=== PATIENT | male | born 1965 | race Caucasian/White ===

== ENCOUNTER 2018-12-06 09:44 | Emergency (ER) | payer OTHER ==
[~2018-12-06] VITALS: Ht 180.3 cm; Wt 68.9 kg
== END 2018-12-06 15:17 | disposition designated cancer center or children's hospital (05) ==
LOC: ER 09:44
DX: S61.221A Laceration with foreign body of left index finger without damage to nail, initial encounter (principal); S62.611A Displaced fracture of proximal phalanx of left index finger, initial encounter for closed fracture; W45.8XXA Other foreign body or object entering through skin, initial encounter; Y93.89 Activity, other specified; Y92.69 Other specified industrial and construction area as the place of occurrence of the external cause; Y99.8 Other external cause status